=== PATIENT | male | born 1995 | race Caucasian/White ===

== ENCOUNTER 2017-07-09 16:18 | Emergency (ER) | payer BC ==
[2017-07-09] MEDS ORDERED: PANTOPRAZOLE SODIUM IV 40 MG VIAL IVP ONE (16:40)
[2017-07-09] MEDS ORDERED: 0.9 % SODIUM CHLORIDE 1,000 ML BAG IV ONE (16:40)
[2017-07-09] MEDS ORDERED: MAGNESIUM HYDROXIDE/AL HYDROX 30 ML, LIDOCAINE VISC 2% 200 MG PO ONE ×2 (16:44)
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
[2017-07-09 17:09] LABS: BASO % 0.2 % (0-6); EOS % 0.8 % (0-6); GRAN % 58.1 % (47-80); HEMATOCRIT 46.6 % (42.0-52.0); HEMOGLOBIN 16.2 gm/dl (14.0-18.0); LYMPH % 32.9 % (16-45); MEAN CELL VOLUME 83.7 fl (81-97); MEAN CORPUSCULAR HEMOGLOBIN 29.1 pg (27-33); MEAN CORPUSCULAR HGB CONC 34.8 g/dl (32-36); MEAN PLATELET VOLUME 10.7 fl (7.4-10.4); PLATELET COUNT 281 K/uL (130-400); RED BLOOD COUNT 5.57 M/uL (4.40-5.70); RED CELL DISTRIBUTION WIDTH 12.7 % (11.5-14.5); WHITE BLOOD COUNT W/O DIFF 4.9 K/uL (4.2-12.2)
[2017-07-09 17:34] LABS: ALBUMIN 4.8 g/dL (4.0-5.0); ALKALINE PHOSPHATASE 68 U/L (40-129); ALT/SGPT 8 U/L (<41); AST/SGOT 14 U/L (10.0-50.0); BILIRUBIN,DIRECT < 0.2 mg/dL (0-0.3); BLOOD UREA NITROGEN 11 mg/dL (6-20); CREATININE 0.9 mg/dL (0.7-1.2); EST GLOMERULAR FILTRATION RATE > 60 mL/min; GLUCOSE,RANDOM 180 mg/dL (74-109); LIPASE 20 U/L (13-60)
[2017-07-09] MEDS ORDERED: DICYCLOMINE HCL 10 MG/ML AMPUL IM ONE (18:23)
[2017-07-09 18:33] LABS: URINE APPEARANCE CLEAR; URINE BILIRUBIN NEGATIVE (NEGATIVE); URINE BLOOD MODERATE (NEGATIVE); URINE COLOR YELLOW; URINE GLUCOSE (UA) NEGATIVE (NEGATIVE); URINE KETONE NEGATIVE (NEGATIVE); URINE LEUKOCYTE ESTERASE NEGATIVE (NEGATIVE); URINE NITRITE NEGATIVE (NEGATIVE); URINE PROTEIN NEGATIVE (NEGATIVE); URINE UROBILINOGEN 0.2 E.U./dL (0.20 - 1.00)
[2017-07-09 18:43] LABS: URINE EPITHELIAL CELLS 0 - 2 (FEW); URINE WBC 0 - 2 (0-2/hpf)
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
== END 2017-07-09 19:14 | disposition home or self-care (01) ==
LOC: ER 16:18
DX: K29.01 Acute gastritis with bleeding (principal); R10.13 Epigastric pain; R31.29 Other microscopic hematuria; R19.7 Diarrhea, unspecified
CPT/HCPCS: 99284 ×2; 96374; 96372; 83690; 85025; 80076; 80048; 81001; 74177; Q9967; C9113; J7030